=== PATIENT | female | born 1955 ===

== ENCOUNTER 2025-01-27 08:14 | Day surgery (SDC) | payer MEDICARE, OTHER ==
[~2025-01-27 08:14] MED LIST: Ondansetron 4 MG/2 ML SDV IVPUSH PRN
[2025-01-27] MEDS ORDERED: Midazolam 1 MG/ML 2 ML SDV IV ONE (08:15)
[2025-01-27] MEDS ORDERED: Dexamethasone 4 MG/ML SDV IV ONE (08:15)
[2025-01-27] MEDS ORDERED: Sodium Chloride 0.9% 10 ML Syringe IV ONE (08:15)
[2025-01-27] MEDS: Povidone-Iodine 5% Sterile Ophth Soln 30 ML Bottle EYERT ONE ×2 (08:46→09:16)
[2025-01-27] MEDS: Moxifloxacin 0.5% Ophth Soln 3 ML Bottle EYERT ONE (08:46)
[2025-01-27] MEDS: Phenylephrine 10% Ophth Soln 5 ML Bot EYERT ONE (08:47)
[2025-01-27] MEDS: Timolol Maleate 0.5% Ophth Soln 5 ML Bottle EYERT ONE (08:47)
[2025-01-27] MEDS: Cataract Ophth Solution EYERT ONE (08:48)
[2025-01-27] MEDS: Diclofenac Sodium 0.1% Ophth Soln 5 ML Bottle EYERT ONE (09:25)
[2025-01-27] MEDS: Apraclonidine 0.5% Ophth Soln 5 ML Bot EYERT ONE (09:25)
[2025-01-27] MEDS: Dexamethasone/Tobramycin 0.1-0.3% Ophth Oint 3.5 GM Tube EYERT ONE (09:25)
== END 2025-01-27 10:00 | disposition home or self-care (01) ==
LOC: DL.SDS 08:14
PROVIDERS: ATTEND Ophthalmology
DX: H25.811 Combined forms of age-related cataract, right eye (principal); I10 Essential (primary) hypertension; Z88.0 Allergy status to penicillin; Z88.2 Allergy status to sulfonamides; Z79.899 Other long term (current) drug therapy
CPT/HCPCS: A9270-GY; J1100; J2003; J2250; J3373; J3490; V2787-GY